=== PATIENT | male | born 1950 | race Caucasian/White ===

== ENCOUNTER → 2017-11-24 | Outpatient (RCR) | payer MEDICARE ==
--- NOTE | 2017-08-26 17:23 | PT INITIAL EVALUATION ---
MEDICAL DIAGNOSIS: Lymphedema TREATMENT DIAGNOSIS: Left Lower Extremity Lymphedema DATE OF ONSET: 08/26/17 SUBJECTIVE: Jun is a 67 year-old male presenting to physical therapy following a gradual onset of L LE lymphedema starting in 2013. Pt reports that the swelling started distally around the ankle and foot and has since worked up into the leg. Swelling used to decrease with elevation, but no only above the knee does. Pt reports no pain with swelling. Pt has no idea what may have caused the edema, but reports that he did have an incident 20 years ago where he had multiple bee stings that resulted in limb swelling throughout but that it since reduced before this current event. Pt initially saw his physician who performed multiple venous US without any signs of DVT. Pt also saw a vascular specialist who also did US in 2014 without any signs of DVT or venous insufficiency. Pt currently wears a compression sock to the below knee level to manage swelling. REHAB PROBLEM LIST: Decreased ROM Decreased Function Decreased ADL's Decreased Mobility Decreased Gait PREVIOUS MEDICAL HISTORY: See EMR, Denies any cardiac or kidney problems OCCUPATION: Retired OBJECTIVE: Pt presents with L LE swelling in from the toes to the groin. Pt has minimal papilloma formation surrounding the toes. No redness or color change is noted throughout the leg. No skin breakdown. ROM: Pt reports tightness in end-range L LE motion but is otherwise WFL Palpation: Pitting edema is present from the knee down. Pedal pulse present B. Special Tests: Stemmer's Sign (+) L digits Lymphedema Life Impact Scale (LLIS) score: 18/72 Gait: No use of AD, slight L hip hike Other Objective Findings: Circumferential measures (all in cm): 1st digit: L 9.5 , R 7.4, 2nd digit: L 7, R 4.5, dorsum: L 25.5, R 22.8, figure 8: L 60.8, R 50 , above mal: L 28.2, R 20, calf: L 42, R 33, below knee: L 41, R 32, above knee : L 43, R 63, thigh: L 52, R 47, groin: L 58, R 55.5. ASSESSMENT: Jun shows signs and symptoms consistent with stage 2 lymphedema of the L LE of unknown etiology. Physical therapy is indicated with MLD and wrapping to reduce pt limb volume and address the above listed impairments to improve pt functional mobility with ADL's. Short Term Goals In 2 weeks pt will have a 30% reduction of the L ankle (figure 8) compared to the R LE for improved functional mobility with ADL's and ambulation. In 6 weeks pt will increase LLIS to <14/72 for improved function with ADL's. In 6 weeks pt will have a 60% reduction of the L ankle (figure 8) compared to the R LE for improved functional mobility with ADL's and ambulation. In 6 weeks pt will be compliant with compression stockings and HEP for continual treatment of condition Patient's Goals Decrease L LE edema PLAN: Patient to be seen for Manual Therapy/STM/MET Stretching Neuromuscular Re-ed Closed Chain Program Gait Trg/Balance Trg Home Exercise Program [facility]./Manual Traction Therapeutic Activities 5x/Week for 6 Weeks If you have any questions, comments, or concerns about this report or plan, please contact me at . Thank you, Alia Daniels, PT, DPT, CLT MTDD
--- NOTE | 2017-09-18 11:26 | PT PLAN OF CARE ---
Physician: Jaya Cox DO Patient is being seen: 5x/Week Therapist: Alia Daniels, PT, DPT, CLT Medical Diagnosis: Lymphedema Treatment Diagnosis: Left Lower Extremity Lymphedema Date of Onset: 08/26/17 Date of Initial Evaluation: 08/26/17 Date patient was last seen: 09/18/17 Number of treatments: 10 Number of cancellations/No shows: 0 INTERVENTIONS: Manual Therapy/STM/MET Stretching Neuromuscular Re-ed Closed Chain Program Gait Trg/Balance Trg Home Exercise Program Mech./Manual Traction Therapeutic Activities GOALS: In 2 weeks pt will have a 30% reduction of the L ankle (figure 8) compared to the R LE for improved functional mobility with ADL's and ambulation. In 6 weeks pt will increase LLIS to <14/72 for improved function with ADL's. In 6 weeks pt will have a 60% reduction of the L ankle (figure 8) compared to the R LE for improved functional mobility with ADL's and ambulation. In 6 weeks pt will be compliant with compression stockings and HEP for continual treatment of condition PATIENT'S GOAL: Decrease L LE edema Status of Patient's Goals: In Progress Patient Compliance: Excellent Prognosis: Good Reasons for continuing therapy: Jun shows progressive decrease in limb volume with overall improved skin texture and integrity. Pt is compliant with HEP and throughout treatment various modifications have been made to further accommodate limb reductions. Further PT is indicated to improve limb reductions and progress pt to independent compression garment use. ROM: Pt reports tightness in end-range L LE motion but is otherwise WFL Palpation: Pitting edema is present from the knee down. Pedal pulse present B. Special Tests: Stemmer's Sign (+) L digits Lymphedema Life Impact Scale (LLIS) score: 18/72 Other Objective Findings: Circumferential measures (all in cm): 1st digit: L 9.2 , R 7.4, 2nd digit: L 6.4, R 4.5, dorsum: L 24.2, R 22.8, figure 8: L 60.8, R 50, above mal: L 28.2, R 20, calf: L 41.1, R 33, below knee: L 36, R 32, above knee: L 42, R 63, thigh: L 53, R 47, groin: L 55.5, R 55.5. If you have any questions or concerns, please feel free to contact me at . Thank you, Alia Daniels, PT, DPT, CLT DOMI
--- NOTE | 2017-10-02 14:48 | PT PLAN OF CARE ---
Physician: Jaya Cox DO Patient is being seen: 5x/Week Therapist: Alia Daniels, PT, DPT, CLT Medical Diagnosis: Lymphedema Treatment Diagnosis: Left Lower Extremity Lymphedema Date of Onset: 08/26/17 Date of Initial Evaluation: 08/26/17 Date patient was last seen: 10/02/17 Number of treatments: 20 Number of cancellations/No shows: 0 INTERVENTIONS: Manual Therapy/STM/MET Stretching Neuromuscular Re-ed Closed Chain Program Gait Trg/Balance Trg Home Exercise Program Mech./Manual Traction Therapeutic Activities GOALS: In 2 weeks pt will have a 30% reduction of the L ankle (figure 8) compared to the R LE for improved functional mobility with ADL's and ambulation. In 6 weeks pt will increase LLIS to <14/72 for improved function with ADL's. In 6 weeks pt will have a 60% reduction of the L ankle (figure 8) compared to the R LE for improved functional mobility with ADL's and ambulation. In 6 weeks pt will be compliant with compression stockings and HEP for continual treatment of condition PATIENT'S GOAL: Decrease L LE edema Status of Patient's Goals: In Progress Patient Compliance: Excellent Prognosis: Good Reasons for continuing therapy: Jun continues to show slow progression of decreased circumferential volume with more persistent change in edema composition from pitting and firm to soft and mobile. Pt is to order night time compression garments for weekend use and to supplement whenever wrapping is off while continuing with treatment. ROM: Pt reports tightness in end-range L LE motion but is otherwise WFL Palpation: Pitting edema is present on foot and ankle but no longer present on LE Pedal pulse present B. Special Tests: Stemmer's Sign (-) L 1st toe, (+) all other L digits Lymphedema Life Impact Scale (LLIS) score: 18/72 Other Objective Findings: Circumferential measures (all in cm): 1st digit: L 9.6 , R 7.4, 2nd digit: L 7.1, R 4.5, dorsum: L 25.8, R 22.8, figure 8: L 60.0, R 50, above mal: L 29, R 20, calf: L 39.8, R 33, below knee: L 36, R 32, above knee: L 42, R 63, thigh: L 50, R 47, groin: L 55.5, R 55.5. If you have any questions or concerns, please feel free to contact me at . Thank you, Alia Daniels, PT, DPT, CLT DIMITRYD
--- NOTE | 2017-10-16 09:20 | PT PLAN OF CARE ---
Physician: Jaya Cox DO Patient is being seen:5x/Week Therapist: Alia Daniels, PT, DPT, CLT Medical Diagnosis: Lymphedema Treatment Diagnosis: Left Lower Extremity Lymphedema Date of Onset: 08/26/17 Date of Initial Evaluation: 08/26/17 Date patient was last seen: 10/16/17 Number of treatments: 30 Number of cancellations/No shows: 0 INTERVENTIONS: Manual Therapy/STM/MET Stretching Neuromuscular Re-ed Closed Chain Program Gait Trg/Balance Trg Home Exercise Program Mech./Manual Traction Therapeutic Activities GOALS: In 2 weeks pt will have a 30% reduction of the L ankle (figure 8) compared to the R LE for improved functional mobility with ADL's and ambulation. In 6 weeks pt will increase LLIS to <14/72 for improved function with ADL's. MET In 6 weeks pt will have a 60% reduction of the L ankle (figure 8) compared to the R LE for improved functional mobility with ADL's and ambulation. In 6 weeks pt will be compliant with compression stockings and HEP for continual treatment of condition PATIENT'S GOAL: Decrease L LE edema Status of Patient's Goals: In Progress Patient Compliance: Excellent Prognosis: Good Reasons for continuing therapy: Jun shows good reductions throughout the entire leg with gradual progression in reduction proximal to distal. Lingering edema is present around the ankle, dorsum and toes with each showing decreased fibrosis despite little circumferential change. Pt to continue with treatment for a couple more weeks and be measured for compression garments next week for progression towards maintenance phase of treatment. ROM: Pt reports tightness in end-range L LE motion but is otherwise WFL Palpation: Pitting edema is present on foot and ankle but no longer present on LE Pedal pulse present B. Special Tests: Stemmer's Sign (-) L 1st toe, (+) all other L digits Lymphedema Life Impact Scale (LLIS) score: 13/72 Other Objective Findings: Circumferential measures (all in cm): 1st digit: L 9.6 , R 7.4, 2nd digit: L 7.2, R 4.5, dorsum: L 25.7, R 22.8, figure 8: L 61.5, R 50, above mal: L 29.5, R 20, calf: L 35.6, R 33, below knee: L 35, R 32, above knee: L 39.0, R 33, thigh: L 50.2, R 47, groin: L 55.5, R 55.5. If you have any questions or concerns, please feel free to contact me at . Thank you, Alia Daniels, PT, DPT, CLT MTDD
--- NOTE | 2017-10-30 09:43 | PT PLAN OF CARE ---
Physician: Jaya Cox DO Patient is being seen: 5x/Week Therapist: Alia Daniels, PT, DPT, CLT Medical Diagnosis: Lymphedema Treatment Diagnosis: Left Lower Extremity Lymphedema Date of Onset: 08/26/17 Date of Initial Evaluation: 08/26/17 Date patient was last seen: 10/30/17 Number of treatments: 40 Number of cancellations/No shows: 0 INTERVENTIONS: Manual Therapy/STM/MET Stretching Neuromuscular Re-ed Closed Chain Program Gait Trg/Balance Trg Home Exercise Program Mech./Manual Traction Therapeutic Activities GOALS: In 2 weeks pt will have a 30% reduction of the L ankle (figure 8) compared to the R LE for improved functional mobility with ADL's and ambulation. In 6 weeks pt will increase LLIS to <14/72 for improved function with ADL's. MET In 6 weeks pt will have a 60% reduction of the L ankle (figure 8) compared to the R LE for improved functional mobility with ADL's and ambulation. In 6 weeks pt will be compliant with compression stockings and HEP for continual treatment of condition PATIENT'S GOAL: Decrease L LE edema Status of Patient's Goals: In Progress Patient Compliance: Excellent Prognosis: Good Reasons for continuing therapy: Jun continues to show slow progress with continual reductions in the leg and recently reductions occurring in the foot and ankle. With change in technique pt as shown progressive decreased in fibrosis in the foot with now a negative Stemmer's sign on the second digit. The dorsum is still quick to return with fluid in any period without compression but shows reductions immediately following manual treatment. Further treatment is indicated for this patient to continue with gains in reduction of circumferential volume as well as return pt to full prior level of function with ambulation. ROM: Pt reports tightness in end-range L LE motion but is otherwise WFL Palpation: Pitting edema is present on foot and ankle but no longer present on LE Pedal pulse present B. Special Tests: Stemmer's Sign (-) L 1st toe, (+) all other L digits Lymphedema Life Impact Scale (LLIS) score: 13/72 Other Objective Findings: Circumferential measures (all in cm): 1st digit: L 9.6 , R 7.4, 2nd digit: L 6.2, R 4.5, dorsum: L 25.1, R 22.8, figure 8: L 60.9, R 50, above mal: L 29.5, R 20, calf: L 35.0, R 33, below knee: L 34.7, R 32, above knee: L 37, R 33, thigh: L 55, R 47, groin: L 55.5, R 55.5. If you have any questions or concerns, please feel free to contact me at [phone]. Thank you, Alia Daniels, PT, DPT, CLT MTDD
--- NOTE | 2017-11-13 10:28 | PT PLAN OF CARE ---
Physician: Jaya Cox DO Patient is being seen: 5x/Week Therapist: Alia Daniels, PT, DPT, CLT Medical Diagnosis: Lymphedema Treatment Diagnosis: Left Lower Extremity Lymphedema Date of Onset: 08/26/17 Date of Initial Evaluation: 08/26/17 Date patient was last seen: 11/13/17 Number of treatments: 50 Number of cancellations/No shows: 0 INTERVENTIONS: Manual Therapy/STM/MET Stretching Neuromuscular Re-ed Closed Chain Program Gait Trg/Balance Trg Home Exercise Program Mech./Manual Traction Therapeutic Activities GOALS: In 2 weeks pt will have a 30% reduction of the L calf compared to the R LE for improved functional mobility with ADL's and ambulation. In 6 weeks pt will increase LLIS to <14/72 for improved function with ADL's. MET In 6 weeks pt will have a 60% reduction of the L calf compared to the R LE for improved functional mobility with ADL's and ambulation. MET In 6 weeks pt will be compliant with compression stockings and HEP for continual treatment of condition. In Progress PATIENT'S GOAL: Decrease L LE edema Status of Patient's Goals: In Progress Patient Compliance: Excellent Prognosis: Good Reasons for continuing therapy: Secondary to likely lymphatic vessel damage proximal to the L ankle pt shows slow progression with decreases in foot volume. However, pt does show gradual improvement in tissue texture and mobility in the foot. R leg reductions remain present and pt is to transition towards independent management with recent order of compression garments as well as with instruction on self MLD treatment. Pt is to continue with PT treatment until garments are available for independent progression. ROM: Pt reports tightness in end-range L LE motion but is otherwise WFL Palpation: Pitting edema is present on foot and ankle but no longer present on LE Pedal pulse present B. Special Tests: Stemmer's Sign (-) L 1st toe, (+) all other L digits Lymphedema Life Impact Scale (LLIS) score: 13/72 Other Objective Findings: Circumferential measures (all in cm): 1st digit: L 9.0 , R 7.4, 2nd digit: L 6.2, R 4.5, dorsum: L 25.1, R 22.8, figure 8: L 60.9, R 50, above mal: L 29.0, R 20, calf: L 35.0, R 33, below knee: L 34.7, R 32, above knee: L 37, R 33, thigh: L 47.7, R 47, groin: L 55.5, R 55.5. If you have any questions or concerns, please feel free to contact me at [phone]. Thank you, Alia Daniels, PT, DPT, CLT MTDD
[~2017-11-24] MED LIST: no meds
== END ==
LOC: PT 08-26 14:01
PROVIDERS: ATTEND Family Medicine
DX: I89.0 Lymphedema, not elsewhere classified (principal)
CPT/HCPCS: 97161

== ENCOUNTER 2018-01-09 09:00 | Outpatient (RCR) | payer MEDICARE ==
--- NOTE | 2017-11-27 10:49 | PT PLAN OF CARE ---
Physician: Jaya Cox DO Patient is being seen: 5x/Week Therapist: Alia Daniels, PT, DPT, CLT Medical Diagnosis: Lymphedema Treatment Diagnosis: Left Lower Extremity Lymphedema Date of Onset: 08/26/17 Date of Initial Evaluation: 08/26/17 Date patient was last seen: 11/27/17 Number of treatments: 60 Number of cancellations/No shows: 0 INTERVENTIONS: Manual Therapy/STM/MET Stretching Neuromuscular Re-ed Closed Chain Program Gait Trg/Balance Trg Home Exercise Program Mech./Manual Traction Therapeutic Activities GOALS: In 2 weeks pt will have a 30% reduction of the L calf compared to the R LE for improved functional mobility with ADL's and ambulation. In 6 weeks pt will increase LLIS to <14/72 for improved function with ADL's. MET In 6 weeks pt will have a 60% reduction of the L calf compared to the R LE for improved functional mobility with ADL's and ambulation. MET In 6 weeks pt will be compliant with compression stockings and HEP for continual treatment of condition. In Progress PATIENT'S GOAL: Decrease L LE edema Status of Patient's Goals: In Progress Patient Compliance: Excellent Prognosis: Good Reasons for continuing therapy: Recently Jun began showing reductions in the ankle and foot following combination negative pressure, and manual scar tissue mobilization to promote lymphatic flow around the superior malleolar region. With these reductions pt reports that he is able to wear shoes and it feels less tight. Reductions in the leg remain present with slight improvement. Further PT is indicated for this patient with these recent interventions to continue progress for this chronic condition prior to discharge for self management. ROM: Pt reports tightness in end-range L ankle motion, but is otherwise WFL Palpation: 1+ pitting edema on foot, 2+ pitting on ankle, above ankle no longer pitting. Pedal pulse present B. Special Tests: Stemmer's Sign (-) L 1st toe, (+) all other L digits Lymphedema Life Impact Scale (LLIS) score: 13/72 Other Objective Findings: Circumferential measures (all in cm): 1st digit: L 9.0 , R 7.4, 2nd digit: L 6.2, R 4.5, dorsum: L 23.8, R 22.8, figure 8: L 59.7, R 50, above mal: L 27.6, R 20, Heel: L 34, calf: L 34.4, R 33, below knee: L 34.4 , R 32, above knee: L 36.6, R 33, thigh: L 47.7, R 47, groin: L 55.5, R 55.5. If you have any questions or concerns, please feel free to contact me at . Thank you, Alia Daniels, PT, DPT, CLT MTDD
--- NOTE | 2017-12-25 11:22 | PT PLAN OF CARE ---
Physician: Jaya Cox DO Patient is being seen: 5x/Week Therapist: Alia Daniels, PT, DPT, CLT Medical Diagnosis: Lymphedema Treatment Diagnosis: Left Lower Extremity Lymphedema Date of Onset: 08/26/17 Date of Initial Evaluation: 08/26/17 Date patient was last seen: 12/25/17 Number of treatments: 75 Number of cancellations/No shows: 0 INTERVENTIONS: Manual Therapy/STM/MET Stretching Neuromuscular Re-ed Closed Chain Program Gait Trg/Balance Trg Home Exercise Program Mech./Manual Traction Therapeutic Activities GOALS: In 2 weeks pt will have a 30% reduction of the L calf compared to the R LE for improved functional mobility with ADL's and ambulation. In 6 weeks pt will increase LLIS to <14/72 for improved function with ADL's. MET In 6 weeks pt will have a 60% reduction of the L calf compared to the R LE for improved functional mobility with ADL's and ambulation. MET In 6 weeks pt will be compliant with compression stockings and HEP for continual treatment of condition. In Progress PATIENT'S GOAL: Decrease L LE edema Status of Patient's Goals: In Progress Patient Compliance: Excellent Prognosis: Good Reasons for continuing therapy: Jun shows minimal reductions around the ankle , but continues to have little response in the foot. Pt is to progress towards independent care with one treatment on Friday and then two treatments following spread out over the next couple weeks to monitor self maintenance. Pt is also seeking further treatment with maintained edema in the foot consulting various medical screener for advise. At this time CDT is no longer making much progress with restrictions to lymphatic vessel flow resulting in retained proteins in the foot. ROM: Pt reports tightness in end-range L ankle motion, but is otherwise WFL Palpation: 2+ pitting edema on foot, 1+ pitting on ankle, above ankle no longer pitting. Pedal pulse present B. Special Tests: Stemmer's Sign (-) L 1st toe, (+) all other L digits Lymphedema Life Impact Scale (LLIS) score: 13/72 Other Objective Findings: Circumferential measures (all in cm): 1st digit: L 9.0 , R 7.4, 2nd digit: L 6.2, R 4.5, dorsum: L 23.8, R 22.8, figure 8: L 56.7, R 50, above mal: L 27.4, R 20, Heel: L 32.3, calf: L 34.4, R 33, below knee: L 32.7, R 32, above knee: L 36.3, R 33, thigh: L 47.5, R 47, groin: L 55.5, R 55.5. If you have any questions or concerns, please feel free to contact me at [phone]. Thank you, Alia Daniels, PT, DPT, CLT MTDD
--- NOTE | 2018-01-09 10:37 | PT PLAN OF CARE ---
Physician: Jaya Cox DO Patient is being seen: 5x/Week Therapist: Alia Daniels, PT, DPT, CLT Medical Diagnosis: Lymphedema Treatment Diagnosis: Left Lower Extremity Lymphedema Date of Onset: 08/26/17 Date of Initial Evaluation: 08/26/17 Date patient was last seen: 01/09/18 Number of treatments: 78 Number of cancellations/No shows: 0 INTERVENTIONS: Manual Therapy/STM/MET Stretching Neuromuscular Re-ed Closed Chain Program Gait Trg/Balance Trg Home Exercise Program Mech./Manual Traction Therapeutic Activities GOALS: In 2 weeks pt will have a 30% reduction of the L calf compared to the R LE for improved functional mobility with ADL's and ambulation. In 6 weeks pt will increase LLIS to <14/72 for improved function with ADL's. MET In 6 weeks pt will have a 60% reduction of the L calf compared to the R LE for improved functional mobility with ADL's and ambulation. MET In 6 weeks pt will be compliant with compression stockings and HEP for continual treatment of condition. MET PATIENT'S GOAL: Decrease L LE edema Status of Patient's Goals: 3/4 MET Patient Compliance: Excellent Prognosis: Good Reasons for discharge from therapy: Jun is to discharge from physical therapy at this time secondary to pt preference and a discontinuation of progress towards functional goals. Throughout treatment pt showed gradual decrease in LE LE volume excluding the foot. Likely due to abnormal lymphatic vessel physiology , pt showed little progress with foot drainage with CDT. Following additional scar tissue mobilization and deep tissue edema mobilization, pt showed short term changes in foot texture and circumference, though protein transport was not achieved resulting in rapid return of edema despite compression. Pt shows slight return in edema following 2 weeks of self maintenance without PT intervention, though return is stable and does not appear to be increasing with compression garment use. Upon discharge, pt is to continue with self MLD, HEP for venous and lymphatic return, and compression garment use for increased interstitial pressure and maintenance of current reduction status. Pt was encouraged to seek a specializing physician for further consultation on alternative treatments and outcomes. Lymphedema Life Impact Scale (LLIS) score: 13/72 Other Objective Findings: Circumferential measures (all in cm) at the end of CDT treatment 12/25/17: 1st digit: L 9.0, R 7.4, 2nd digit: L 6.2, R 4.5, dorsum : L 23.8, R 22.8, figure 8: L 56.7, R 50, above mal: L 27.4, R 20, Heel: L 32.3 , calf: L 34.4, R 33, below knee: L 32.7, R 32, above knee: L 36.3, R 33, thigh : L 47.5, R 47, groin: L 55.5, R 55.5. Circumferential measures (all in cm) following 2 weeks of self maintenance: 1st digit: L 9.3, R 7.4, 2nd digit: L 6.7, R 4.5, dorsum: L 25, R 22.8, figure 8: L 57.6, R 50, above mal: L 27.1, R 20, Heel: L 32, calf: L 40, R 33, below knee: L 34.5, R 32, above knee: L 36.2, R 33, thigh: L 47.7, R 47, groin: L 55.5, R 55.5. If you have any questions or concerns, please feel free to contact me at . Thank you, Alia Daniels, PT, DPT, CLT MTDD
== END 2018-01-09 14:22 | disposition home or self-care (01) ==
LOC: PT 09:00
PROVIDERS: ATTEND Family Medicine
DX: I89.0 Lymphedema, not elsewhere classified (principal)